=== PATIENT | female | born 1975 | race African-American/Black ===

== ENCOUNTER → 2016-10-22 | Outpatient (CLI) | payer BC ==
--- NOTE | 2016-10-22 15:36 | MAMMOGRAPHY REPORT ---
BILATERAL FIRST EVER DIGITAL SCREENING MAMMOGRAM TOMOSYNTHESIS WITH CAD: 10/22/2016 CLINICAL HISTORY: Routine screening. Baseline exam. TECHNIQUE: Breast tomosynthesis in addition to standard 2D mammography was performed. Current study was also evaluated with a Computer Aided Detection (CAD) system. COMPARISON: No prior exams were available for comparison. BREAST COMPOSITION: There are scattered areas of fibroglandular density in both breasts. FINDINGS: There is a lobulated mass versus 2 adjacent masses in the right 12:00 breast, measuring a pproximately 5 cm in size. Calcifications are seen in association with the mass. Recommend spot ma gnification views and possible breast ultrasound for further evaluation. The remainder of both breasts demonstrate no suspicious masses, calcifications, or areas of architec tural distortion. IMPRESSION: ACR BI-RADS CATEGORY 0: INCOMPLETE EVALUATION: NEED ADDITIONAL IMAGING EVALUATION Right breast mass and associated calcifications, for which additional imaging evaluation is recommen ded. The patient will be called to schedule an appointment. Approximately 10% of breast cancers are not detected with mammography. A negative mammographic repor t should not delay biopsy if a clinically suggestive mass is present. Madisyn Ferrara M.D. ah/:10/22/2016 14:45:16 Single Stayer Operator: Ksenia MCCANN)([place]), [facility] letter sent: Addl Imaging 0 BI-RADS Code: ACR BI-RADS Category 0: Incomplete Evaluation: Need Additional Imaging Evaluation
== END | disposition home or self-care (01) ==
LOC: C.MAMM 10:48
PROVIDERS: ATTEND Nurse Practitioner Adult Health
DX: Z12.31 Encounter for screening mammogram for malignant neoplasm of breast (principal); N63 Unspecified lump in breast; R92.1 Mammographic calcification found on diagnostic imaging of breast

== ENCOUNTER → 2016-10-23 | Outpatient (CLI) | payer BC | END | disposition home or self-care (01) | LOC: C.PAPS 08:47 | PROVIDERS: ATTEND Nurse Practitioner Adult Health | DX: Z01.419 Encounter for gynecological examination (general) (routine) without abnormal findings (principal) ==

== ENCOUNTER → 2016-10-23 | Outpatient (CLI) | payer BC ==
[2016-10-23 13:07] LABS: MEAN CELL VOLUME 89.4 fL (80-100); MEAN CORPUSCULAR HEMOGLOBIN 30.7 pg (25-34); MEAN CORPUSCULAR HGB CONC 34.3 g/dl (32-36); MEAN PLATELET VOLUME 11.6 fL (7.4-10.4); PLATELET COUNT 237 K/uL (130-400); RED BLOOD COUNT 4.14 M/uL (4.2-5.4); WHITE BLOOD COUNT 2.94 K/uL (4.8-10.8)
[2016-10-23 13:31] LABS: ESTIMATED AVERAGE GLUCOSE 103 mg/dl; HA1C FLAG Normal (Normal)
[2016-10-23 13:43] LABS: ALT/SGPT 28 U/L (12-78); AST/SGOT 17 U/L (15-37); BLOOD UREA NITROGEN 10 mg/dl (7-18); BUN/CREATININE RATIO 12.5 (10-20); CALCIUM 8.7 mg/dl (8.5-10.1); CARBON DIOXIDE 27 mmol/L (21-32); CHLORIDE 104 mmol/L (98-107); CREATININE 0.77 mg/dl (0.60-1.20); GLUCOSE 76 mg/dl (70-99); POTASSIUM 3.5 mmol/L (3.5-5.1); SODIUM 140 mmol/L (136-145)
[2016-10-23 13:53] LABS: ALKALINE PHOSPHATASE 67 U/L (45-117); CHOLESTEROL 154 mg/dl (0-200); CHOLESTEROL/HDL RATIO 2.5; HDL CHOLESTEROL 62 mg/dl; LDL CHOLESTEROL CALCULATED 82 mg/dl; TRIGLYCERIDES 52 mg/dl (0-150); VERY LOW DENSITY LIPOPROT CALC 10 mg/dl
[2016-10-23 13:59] LABS: BASO % 0.3 %; BASO ABS # 0.01 K/uL (0-0.2); COMPLETE YES; EOS % 0.7 %; IG% 0.3 %; LYMPH % 54.4 %; MONO % 6.1 %; NEUT % 38.2 %
[2016-10-27 15:12] LABS: CHLAMYDIA TRACH RNA*** NOT DETECTED (NOT DETECTED); GC (NEIS GONORRHOEAE)RNA** NOT DETECTED (NOT DETECTED)
[2016-10-27 21:34] LABS: HSV TYPE 1 DNA Not Detected (Not Detected); HSV TYPE 1&2 DNA SOURCE Whole Blood; HSV TYPE 2 DNA Not Detected (Not Detected)
== END | disposition home or self-care (01) ==
LOC: C.LAB1850 12:19
PROVIDERS: ATTEND Nurse Practitioner Adult Health
DX: E66.9 Obesity, unspecified (principal); F41.9 Anxiety disorder, unspecified; R03.0 Elevated blood-pressure reading, without diagnosis of hypertension; Z20.2 Contact with and (suspected) exposure to infections with a predominantly sexual mode of transmission

== ENCOUNTER → 2017-09-07 | Outpatient (CLI) | payer OTHER ==
[~2017-09-07] VITALS: Ht 165.1 cm; Wt 85.1 kg
[2017-09-07 14:26] VITALS: BP 166/92; PULSE 89; Ht 165.1 cm; Wt 85.1 kg
== END | disposition home or self-care (01) ==
LOC: C.NEUR 13:26
PROVIDERS: ATTEND Internal Medicine Pulmonary Disease
DX: G47.19 Other hypersomnia (principal); R06.83 Snoring; R53.83 Other fatigue; R06.81 Apnea, not elsewhere classified

== ENCOUNTER → 2017-09-22 | Outpatient (CLI) | payer OTHER ==
--- NOTE | 2017-09-23 05:55 | PAP/PSG TECHNICIAN REPORT ---
[facility] Maintenance Electrician Polysomnogram Report Study name: None Report date: 09/23/2017 Study date: 09/22/2017 Referring Physician: Anil Omer M.D. Name: PADMA VALIENTE Interpreting Physician: Anil Omer M.D. Date of : 1975 Maintenance Electrician: KOMAL Buck. Sex: Female Age: 42 StudyType: PSG Weight: 187.6 lbs Height: 42 years, Height 5' 5" Neck Circum:14.5inches BMI: 31.21 Medications: Vyvanse 30mg Patient History Study started on room air with no ETCO2 monitoring in room #8. 42 yr old female here tonight for a possible split psg. She has a history of loud snoring, gasping for breath and EDS. She has HTN. Her ESS=14/24. Neck circ=14.5inches. Parameters Monitored NPSG: E1-M2, E2-M1, Fp1-M2, Fp2-M1, F3-M2, F4-M2, F4-M1, C3-M2, C4-M2, C4-M1, O1-M2, O2-M2, O2-M1, T3-M2, T4-M1, P3-M2, P4-M1, CHIN1, CHIN2, HR, EKG, Legs, PFLOW, SNOR, FLOW, CFLOW, Tidal Volume, THOR, ABDO, SpO2, PLTH, CPRESS, ETCO2 Wave, ETCO2, pH Sleep Architecture Sleep Stages Time at Lights Off 9:46:25 PM STAGES Time (min.) TST (%) Time at Lights On 5:27:25 AM Wake 75.5 -- Total Recording Time (TRT) 460.50 min. N1 13.0 3 Total Sleep Period (TSP) 422.5 min. N2 259.5 67 Total Sleep Time (TST) 385.0min. N3 33.5 9 Awake Time 75.5 min. REM 79.0 21 Wake after Sleep Onset 37.5 min. Sleep Efficiency (SE) 84 % Sleep Onset Latency (NAY) 38.5 min. Number of Stage 1 Shifts None Awakenings 16 Stage Changes 61 Number of REM periods 2 REM 79.0 21 REM Latency 117.5 min. NREM 306.0 79 Body Position Analysis Supine Right Left Side Prone Vertical Total Sleep Time (min.) 139.7 36.5 27.7 64.17 246.6 0.0 Total Sleep Time (%) 24% 9% 7% 17 59% N/A% Total Sleep Time REM (min.) 0.0 0.0 12.5 None 66.5 0.0 Total Sleep Time NREM (min.) 92.0 36.5 15.2 None 162.3 0.0 Intermittent Wake (min.) 47.7 4.4 5.6 None 17.8 0.0 Total Sleep Period (%) 25% None None None None None Arousals Myoclonus (PLM) * Events Count Index Events Count Index Spontaneous 7 1 Events Awake (PLMW) 70 55.6 Respiratory 5 1.2 Events Asleep w/ Arousal (PLMA) 1 0.2 PLM 1 0 Events Asleep w/o Arousal (PLMS) 10 1.6 Snoring 5 1 Total Asleep 11 1.7 Total 18 3 Total 81 11 Respiratory Analysis * CA OA MA CH H RERA Total Count 0 15 0 0 37 0 52 Index 0.0 2.3 0.0 0 5.8 0 8.1 Mean Duration 0.0 17.8 0.0 0.00 19.4 0.0 19.0 Longest Duration 0.0 28.9 0.0 0.00 0.0 0.0 38.1 Respiratory Event Summary Total Supine ~Supine Right Left Prone REM NREM Apneas Count 15 2 13 6 1 6 0 15 Index 2.3 1 3 9.9 2.2 2 0 3 Hypopneas (4% Desat) Count 37 14 23 6 5 12 6 31 Index 5.8 9.1 5 9.9 10.8 3.1 4.6 6.1 Apneas & All Hypopneas Count 52 16 36 12 6 18 6 46 Index 8.1 10 7 20 13 5 4.6 9.0 Respiratory Events (Machine Packager+All Hyp+RERA) Count 52 16 36 12 6 18 6 46 Index 8.1 10 7 19.7 13.0 4.7 4.6 9.0 Respiratory Related Arousal Count 5 16 5 3 0 2 0 8 Index 1.2 2 1 5 0 1 0 2 Snoring Analysis Supine Right Left Prone REM NREM Total Snore duration 88.0 min Snores count 683 264 365 1,838 637 2,513 3,150 Snore mean duration 1.7 Sec Snores index 445 434 792 482 483.8 492.7 490.9 TST with snoring (%) 22.9% Desaturation Event Summary: Minimum %SpO2 Event Count Mean/Min/Max Duration(sec.) Desaturation Index % Time In Bed > 90 122 27.0 / 7.0 / 60.0 17.7 90.3 86 - 90 5 17.4 / 9.3 / 26.8 7.0 9.4 81 - 85 0 N/A 0.0 0.3 76 - 80 0 N/A 0.0 0.0 71 - 75 0 N/A 0.0 0.0 66 - 70 0 N/A 0.0 0.0 61 - 65 0 N/A 0.0 0.0 56 - 60 0 N/A 0.0 0.0 51 - 55 0 N/A 0.0 0.0 < 50 0 N/A 0.0 0.0 Total REM NREM Awake <50% 0.0 min. 0.0 min. 0.0 min. 0.0 min. 51 - 60% 0.0 min. 0.0 min. 0.0 min. 0.0 min. 61 - 70% 0.0 min. 0.0 min. 0.0 min. 0.0 min. 71 - 80% 0.0 min. 0.0 min. 0.0 min. 0.0 min. 81 - 90% 44.3 min. 10.1 min. 31.4 min. 2.8 min. 91 - 100% 413.5 min. 68.9 min. 274.6 min. 70.0 min. Average 93 92 93 96 Minimum SpO2 82 83 82 83 Desaturation Event Index 16.0 10.6 19.4 10.3 # Desat. Events below 89% 35 9 24 2 Time(%) with Saturation below 89% 1.7 0.6 0.8 0.4 Time(min.) with Saturation below 89% 7.9 2.6 3.6 1.7 Time (mins) REM (mins) NREM (mins) % of TST SpO2 Below 90% 81 14 N67 4.6 SpO2 Below 88% 13 0 0 1 Heart Rate Analysis Min (bpm) Max (bpm) Average (bpm) Awake 72 116 94 NREM 52 127 79 REM 55 96 79 Overall 52 127 79 Supplemental O2 Values Minimum O2 level: None Value Start Time End Time Maintenance Electrician Comments Amarilis Thomason slept in the right, left, supine and prone positions. Cardiac arrhythmia noted, please see print outs. No PLM's noted. No bruxism noted. Snoring was noted and scored as a 4 on a scale of 1 through 5. (0=no snoring, 5=snoring loud enough to be heard through a closed door or down the [address] way) She did not use the restroom during the night. She stated that she slept worse than normal. The final report will be interpreted and signed by a sleep physician. The completed physician report will then be placed in the patient medical record. Therapy (cm H2O) 0 TIB (min.) 460.5 TST (min.) 385.0 Sleep Onset (min.) 38.5 REM Onset From Sleep (min.) 117.5 Sleep Efficiency % 84 Wakefulness (%) 16 Wakefulness (min.) 75.5 NREM 1 (%) 3 NREM 1 (min.) 13.0 NREM 2 (%) 67 NREM 2 (min.) 259.5 NREM 3 (%) 9 NREM 3 (min.) 33.5 REM (%) 21 REM (min.) 79.0 # Arousals 18 Arousal Index 3 # Snore 3,150 Snore Index 490.9 AHI 8.1 AHI Supine 10 AHI Non-Supine 7 NREM AHI 9.0 REM AHI 4.6 RDI 8.1 # Obstructive Apnea 15 # Central Apnea 0 # Mixed Apnea 0 # Hypopneas 37 RERAs 0 Total Respiratory Events 54 Time Below SpO2 89% (min.) 6.2 Mean NREM SpO2 (%) 93 Mean REM SpO2 (%) 92 Mean Sleep SpO2 (%) 92 Min NREM SpO2 (%) 82 Min REM SpO2 (%) 83 Position Supine (min.) 139.7 Position Non-supine (min.) 293.0 LM Index Sleep 1.7 LM Index NREM 2.0 LM Index REM 0.8 Mean Heart Rate (bpm) 79 Min Heart Rate (bpm) 52
--- NOTE | 2017-09-23 16:42 | POLYSOMNOGRAPH REPORT ---
CLINICAL DATA: A 42-year-old female with a BMI of 31.2, referred by Mervat Nash and myself for a sleep study. She does have loud snoring, gasping for breath, and excessive daytime sleepiness. Her Edna sleepiness score is 14/24. SLEEP ARCHITECTURE: Total sleep period was 422.5 minutes. Total sleep time was 385 minutes divided between 306 minutes of non-REM sleep and 79 minutes of REM sleep. Sleep onset latency was delayed at 37.5 minutes. REM latency was 117.5 minutes. Sleep efficiency was 84%. Wake after sleep onset was 37.5 minutes. Sleep consisted of stage N1 3%, stage N2 67%, stage N3 9%, and REM 21%. AROUSAL DATA: Eighteen arousals recorded for an index of 3 per hour. PERIODIC LIMB MOVEMENT DATA: Eleven limb movements during sleep noted for an index of 1.7 per hour with arousal index of 0.2 per hour. RESPIRATORY DATA: Mild sleep apnea was documented. The AHI was 8.1. There were 15 obstructive apneic episodes. The longest apneic episode was 29 seconds. There were 37 hypopneic episodes. The mean duration of hypopnea was 19.4 seconds. OXIMETRY DATA: Mild nocturnal hypoxemia was seen. Oxygen arturo was 83% during REM. The mean saturation was 93%. Time below 88% was 13 minutes. DATA: EKG: Heart ranged from 52-127 beats per minute. PVCs were noted. STUDENT LIFE VICE PRESIDENT'S COMMENTS: The patient slept in the right, left, supine, and prone positions. Snoring was severe, rated 4 on a scale of 1-5. IMPRESSION: Mild obstructive sleep apnea/hypopnea with an apnea/hypopnea index of 8.1 with nocturnal hypoxemia. RECOMMENDATIONS: The patient may benefit from weight loss, use of an oral appliance, a repeat sleep study with CPAP, or use of auto CPAP. Clinical correlation is needed. [facility]Mike
== END | disposition home or self-care (01) ==
LOC: C.NEUR 21:00
PROVIDERS: ATTEND Internal Medicine Pulmonary Disease
DX: G47.19 Other hypersomnia (principal); R53.83 Other fatigue; R06.83 Snoring; G47.33 Obstructive sleep apnea (adult) (pediatric); G47.36 Sleep related hypoventilation in conditions classified elsewhere